=== PATIENT | male | born 1990 | race Two or more races ===

== ENCOUNTER 2022-12-07 11:33 | Emergency (ER) | payer SELFPAY ==
[~2022-12-07] VITALS: Ht 182.9 cm; Wt 91.0 kg
[2022-12-07] MEDS ORDERED: MORPHINE SULFATE 4 MG/ML CPJ (NOT FOR IM USE) IV ONE (12:00)
== END 2022-12-07 14:00 | disposition short-term general hospital (02) ==
LOC: ER 11:33
DX: S31.139A Puncture wound of abdominal wall without foreign body, unspecified quadrant without penetration into peritoneal cavity, initial encounter (principal); W34.09XA Accidental discharge from other specified firearms, initial encounter; Y93.89 Activity, other specified; Y92.89 Other specified places as the place of occurrence of the external cause; Y99.8 Other external cause status
CPT/HCPCS: 71045; 96374; 99291; J2270; Z7610